=== PATIENT | female | born 1980 | race Caucasian/White ===

== ENCOUNTER 2020-09-20 13:18 | Emergency (ER) | payer MEDICAID ==
[~2020-09-20] VITALS: Ht 157.5 cm; Wt 72.6 kg
--- NOTE | 2020-09-20 13:18 | NUR ---
PT BIB SENT FROM CLINIC FOR LOW H&H. PT IS AAOX4, NOT IN RESPIRATORY DISTRRESS, V/S STABLE, KEPT RESTED AND COMFORTABLE. WILL CONTINUE TO MONITOR.
--- NOTE | 2020-09-20 13:34 | NUR ---
SEEN AND EXAMINED BY .
--- NOTE | 2020-09-20 14:02 | NUR ---
ER PHLEB AT BEDSIDE FOR BLOOD DRAW.
[2020-09-20 14:35] LABS: CREATININE 0.9 mg/dL (0.6-1.3); POTASSIUM 3.9 mmol/L (3.5-5.1)
[2020-09-20 14:38] LABS: BASOPHILS % (AUTO) 0.2 % (0.0-2.0); EOSINOPHILS % (AUTO) 1.6 % (0.0-6.0); HEMATOCRIT 26 % (33-45); HEMOGLOBIN 7.8 g/dL (11.5-14.8); LYMPHOCYTES # (AUTO) 1.5 /CMM (0.8-4.8); MEAN CORPUSCULAR HGB CONC 30 g/dl (31.0-36.0); MEAN CORPUSCULAR VOLUME 68 fL (82-100); MONOCYTES # (AUTO) 0.6 /CMM (0.1-1.30); MONOCYTES % (AUTO) 10.6 % (2.0-12.0); NEUTROPHILS # (AUTO) 3.9 /CMM (1.8-8.9); NEUTROPHILS % (AUTO) 63.6 % (43.0-81.0); PLATELET COUNT (AUTO) 288 /CMM (150-450); RED BLOOD CELL COUNT(AUTO) 3.86 MIL/uL (4.0-5.2); WHITE BLOOD COUNT (AUTO) 6.1 K/uL (4.3-11.0)
[2020-09-20 14:44] LABS: ALBUMIN 3.6 g/dL (3.4-5.0); BILIRUBIN,TOTAL 0.8 mg/dL (0.2-1.0); TOTAL PROTEIN, SERUM 7.5 g/dL (6.4-8.2)
[2020-09-20 16:26] LABS: LYMPHOCYTES % (MANUAL) 30 % (16-48); MONOCYTES % (MANUAL) 4 % (0-11.0); NEUTROPHILS % (MANUAL) 66 (42-76)
--- NOTE | 2020-09-20 17:15 | NUR ---
IV LINE ESTABLISHED G1Shanta R AC.
--- NOTE | 2020-09-20 19:11 | NUR ---
IV removed. Catheter intact and site benign. Pressure and 4x4 applied to site. No bleeding noted. Patient discharged to home in stable condition. Written and verbal after care instructions given. Patient verbalizes understanding of instruction.
[2020-09-20 19:23] VITALS: BP 121/73
== END 2020-09-20 19:23 | disposition home or self-care (01) ==
LOC: ER 13:20
DX: D64.9 Anemia, unspecified (principal); E11.65 Type 2 diabetes mellitus with hyperglycemia; N92.0 Excessive and frequent menstruation with regular cycle
CPT/HCPCS: 36415; 36430; 80053; 82962; 84484; 84702; 85007; 85025; 86850; 86923; 93005; 99285; J7050; P9016

== ENCOUNTER 2021-05-18 07:56 | Emergency (ER) | payer MEDICAID ==
[~2021-05-18] VITALS: Ht 149.9 cm; Wt 61.7 kg
--- NOTE | 2021-05-18 07:56 | NUR ---
PT BIB C/O HEADACHE AND DIZZINESS X 3 DAYS. PT. IS AAOX4, NOT IN RESPIRATORY DISTRESS, HOOKED TO MANAGER PROPOSAL, KEPT RESTED AND COMFORTABLE. WILL CONTINUE TO MONITOR.
--- NOTE | 2021-05-18 08:14 | NUR ---
AT BEDSIDE FOR EVAL.
[2021-05-18] MEDS ORDERED: METOCLOPRAMIDE HCL 10 MG TABLET ONE (08:22)
[2021-05-18] MEDS ORDERED: ACETAMINOPHEN ES 500 MG TABLET ONE (08:22)
[2021-05-18] MEDS ORDERED: KETOROLAC TROMETHAMINE 15 MG/ML VIAL ONE (08:29)
[2021-05-18] MEDS ORDERED: KETOROLAC TROMETHAMINE INJ 30 MG/ML VIAL IM ONE (08:30)
[2021-05-18] MEDS ORDERED: METOCLOPRAMIDE HCL 10 MG TABLET PO ONE (08:30)
[2021-05-18] MEDS ORDERED: ACETAMINOPHEN ES 500 MG TABLET PO ONE (08:30)
--- NOTE | 2021-05-18 08:30 | NUR ---
URINE SPECIMEN COLLECTED AND SENT TO LAB.
--- NOTE | 2021-05-18 09:11 | NUR ---
PT IS WHEELED TO CT SCAN VIA [facility].
[2021-05-18 09:13] LABS: CALCIUM, SERUM 9.1 mg/dL (8.5-10.1); CREATININE 0.6 mg/dL (0.6-1.3); POTASSIUM 4.5 mmol/L (3.5-5.1)
[2021-05-18 09:14] LABS: BASOPHILS % (AUTO) 0.4 % (0.0-2.0); EOSINOPHILS % (AUTO) 3.3 % (0.0-6.0); HEMATOCRIT 34 % (33-45); HEMOGLOBIN 10.8 g/dL (11.5-14.8); LYMPHOCYTES # (AUTO) 1.1 K/uL (0.8-4.8); LYMPHOCYTES % (AUTO) 22.2 % (20.0-44.0); MEAN CORPUSCULAR HGB CONC 32 g/dl (31.0-36.0); MEAN CORPUSCULAR VOLUME 89 fL (82-100); MONOCYTES # (AUTO) 0.2 K/uL (0.1-1.30); MONOCYTES % (AUTO) 4.9 % (2.0-12.0); NEUTROPHILS # (AUTO) 3.5 K/uL (1.8-8.9); NEUTROPHILS % (AUTO) 69.2 % (43.0-81.0); PLATELET COUNT (AUTO) 263 K/uL (150-450); RED BLOOD CELL COUNT(AUTO) 3.81 MIL/uL (4.0-5.2); WHITE BLOOD COUNT (AUTO) 5.1 K/uL (4.3-11.0)
[2021-05-18] MEDS ORDERED: SUMATRIPTAN SUCCINATE 6 MG/0.5 ML VIAL SQ ONE ×2 (10:00→10:05)
--- NOTE | 2021-05-18 10:33 | NUR ---
Patient discharged to home in stable condition. Written and verbal after care instructions given. Patient verbalizes understanding of instruction.
[2021-05-18 10:34] VITALS: BP 119/73
== END 2021-05-18 10:35 | disposition home or self-care (01) ==
LOC: ER 08:01
DX: R51.9 Headache, unspecified (principal); E11.9 Type 2 diabetes mellitus without complications; D64.9 Anemia, unspecified; E78.00 Pure hypercholesterolemia, unspecified
CPT/HCPCS: 36415; 70450; 80048; 84703; 85025; 96372 ×2; 99284; J1885; J3030; J8597

== ENCOUNTER 2021-10-07 22:06 | Emergency (ER) | payer BC, MEDICAID ==
[~2021-10-07] VITALS: Ht 154.9 cm; Wt 62.6 kg
--- NOTE | 2021-10-07 23:20 | NUR ---
RUTH C/O HEADACHE AND MID EPIGASTRIC PAIN X1DAY. +N/V. PATIENT ALERT AND ORIENTED X3. AMBULATORY WITH NON LABORED BREATHING IN BED 10 AWAITING MD FRYE.
[2021-10-08] MEDS ORDERED: ONDANSETRON HCL/PF 4 MG/2 ML VIAL IVP ONE
[2021-10-08] MEDS ORDERED: IV NS 0.9% 1,000 ML BAG IV ONE
[2021-10-08] MEDS ORDERED: MAG HYDROX/AL HYDROX/SIMETH 30 ML UDC PO ONE
[2021-10-08] MEDS ORDERED: METOCLOPRAMIDE HCL 10 MG/2 ML VIAL IV ONE
[2021-10-08] MEDS ORDERED: MAG HYDROX/AL HYDROX/SIMETH 30 ML UDC ONE (00:05)
[2021-10-08] MEDS ORDERED: ONDANSETRON HCL/PF 4 MG/2 ML VIAL ONE ×2 (00:05→02:09)
[2021-10-08] MEDS ORDERED: METOCLOPRAMIDE HCL 10 MG/2 ML VIAL ONE (00:05)
[2021-10-08] MEDS ORDERED: FAMOTIDINE/PF INJ 20 MG/2 ML VIAL IV ONE ×2 (00:06)
[2021-10-08 00:13] LABS: BASOPHILS % (AUTO) 0.2 % (0.0-2.0); EOSINOPHILS % (AUTO) 1.7 % (0.0-6.0); HEMATOCRIT 26 % (33-45); HEMOGLOBIN 7.7 g/dL (11.5-14.8); LYMPHOCYTES # (AUTO) 1.2 K/uL (0.8-4.8); MEAN CORPUSCULAR HGB CONC 30 g/dl (31.0-36.0); MEAN CORPUSCULAR VOLUME 69 fL (82-100); MONOCYTES # (AUTO) 0.2 K/uL (0.1-1.30); MONOCYTES % (AUTO) 4.6 % (2.0-12.0); NEUTROPHILS # (AUTO) 3.7 K/uL (1.8-8.9); NEUTROPHILS % (AUTO) 70.5 % (43.0-81.0); PLATELET COUNT (AUTO) 274 K/uL (150-450); RED BLOOD CELL COUNT(AUTO) 3.77 MIL/uL (4.0-5.2); WHITE BLOOD COUNT (AUTO) 5.3 K/uL (4.3-11.0)
--- NOTE | 2021-10-08 00:15 | NUR ---
URINE COLLECTED AND SENT TO LAB
--- NOTE | 2021-10-08 00:15 | NUR ---
BLOOD COLLECTED AND SENT TO LAB
[2021-10-08 00:44] LABS: ALBUMIN 3.6 g/dL (3.4-5.0); BILIRUBIN,DIRECT 0.1 mg/dL (0.0-0.2); BILIRUBIN,TOTAL 0.7 mg/dL (0.2-1.0); CALCIUM, SERUM 8.6 mg/dL (8.5-10.1); CREATININE 0.6 mg/dL (0.6-1.3); POTASSIUM 4.2 mmol/L (3.5-5.1); TOTAL PROTEIN, SERUM 7.4 g/dL (6.4-8.2)
[2021-10-08 00:54] LABS: BILIRUBIN,URINE NEGATIVE (NEGATIVE); COLOR,URINE YELLOW (YELLOW); LEUKOCYTE ESTERASE ,URINE TRACE (NEGATIVE); NITRITE, URINE NEGATIVE (NEGATIVE); PROTEIN,URINE 30 mg/dl (NEGATIVE); UGLUCOSE 250 MG/DL mg/dL (NEGATIVE); UROBILINOGEN,URINE 0.2 EU/dL (0.2)
[2021-10-08 01:06] LABS: RBC,URINE TOO NUMEROUS TO COUN /HPF (0-2)
[2021-10-08 01:08] LABS: BACTERIA,URINE Moderate /HPF (None Seen); SQUAMOUS EPITHELIAL CELL,UR Moderate /HPF (None Seen)
[2021-10-08] MEDS ORDERED: diphenhydrAMINE HCL 50 MG/ML VIAL IV ONE (01:30)
[2021-10-08] MEDS ORDERED: ACETAMINOPHEN 325 MG TABLET PO ONE (01:30)
[2021-10-08] MEDS ORDERED: ONDANSETRON HCL/PF 4 MG/2 ML VIAL IV ONE (01:30)
[2021-10-08] MEDS ORDERED: diphenhydrAMINE HCL 50 MG/ML VIAL ONE (02:09)
[2021-10-08] MEDS ORDERED: ACETAMINOPHEN 325 MG TABLET ONE (02:09)
[2021-10-08 02:21] VITALS: BP 119/70
[2021-10-08] MEDS ORDERED: MAG355OR21 PO (03:13)
[2021-10-08] MEDS ORDERED: ONDA4TAB5 PO (03:13)
[2021-10-08] MEDS ORDERED: METO-295 PO (03:13)
[2021-10-08] MEDS ORDERED: FAMO20TA8 PO (03:13)
--- NOTE | 2021-10-08 03:25 | NUR ---
Patient discharged to home in stable condition. Written and verbal after care instructions given. Patient verbalizes understanding of instruction.
== END 2021-10-08 03:30 | disposition home or self-care (01) ==
LOC: ER 22:17
DX: R10.13 Epigastric pain (principal); N92.0 Excessive and frequent menstruation with regular cycle; K21.9 Gastro-esophageal reflux disease without esophagitis; D50.0 Iron deficiency anemia secondary to blood loss (chronic); E11.9 Type 2 diabetes mellitus without complications; E78.00 Pure hypercholesterolemia, unspecified; Z86.2 Personal history of diseases of the blood and blood-forming organs and certain disorders involving the immune mechanism; Z79.899 Other long term (current) drug therapy
CPT/HCPCS: 36415; 80048; 80076; 81001; 83690; 84703; 85025; 87086; 96361; 96374; 96375; 99284; J1200; J2405 ×2; J2765; J3490; J7030

== ENCOUNTER 2021-10-08 22:38 | Emergency (ER) | payer BC ==
[~2021-10-08] VITALS: Ht 154.9 cm; Wt 62.6 kg
[~2021-10-08 22:38] MED LIST: FAMO20TA8 PO; MAG355OR21 PO; METO-295 PO; ONDA4TAB5 PO
--- NOTE | 2021-10-08 22:47 | NUR ---
PT BIBHUSBAND FROM HOME C/O HEADACHE SINCE YESTERDAY. PT D/C FROM [facility] ER YESTERDAY AND TOOK PRESCRIBED MEDS WITH NO RELIEF. PT A/OX4. TOLERATING R/A WELL WITH NO SOB. CONNECTED PT TO POX AND MONITOR.
[2021-10-08] MEDS ORDERED: KETOROLAC TROMETHAMINE 15 MG/ML VIAL ONE (22:58)
[2021-10-08] MEDS ORDERED: diphenhydrAMINE HCL 50 MG/ML VIAL ONE (22:58)
[2021-10-08] MEDS ORDERED: METOCLOPRAMIDE HCL 10 MG/2 ML VIAL ONE (22:58)
[2021-10-08] MEDS ORDERED: diphenhydrAMINE HCL 50 MG/ML VIAL IV ONE (23:00)
[2021-10-08] MEDS ORDERED: IV NS 0.9% 1,000 ML BAG IV ONE (23:00)
[2021-10-08] MEDS ORDERED: KETOROLAC TROMETHAMINE INJ 30 MG/ML VIAL IV ONE (23:00)
[2021-10-08] MEDS ORDERED: METOCLOPRAMIDE HCL 10 MG/2 ML VIAL IV ONE (23:00)
--- NOTE | 2021-10-09 00:07 | NUR ---
Patient discharged to home in stable condition. Written and verbal after care instructions given. Patient verbalizes understanding of instruction. PT ambulatory with a steady gait. IV removed. Catheter intact and site benign. Pressure and 4x4 applied to site. No bleeding noted.
[2021-10-09 00:10] VITALS: BP 119/88
== END 2021-10-09 00:10 | disposition home or self-care (01) ==
LOC: ER 22:46
DX: R51.9 Headache, unspecified (principal); E11.9 Type 2 diabetes mellitus without complications; E78.00 Pure hypercholesterolemia, unspecified; Z86.2 Personal history of diseases of the blood and blood-forming organs and certain disorders involving the immune mechanism; Z79.899 Other long term (current) drug therapy
CPT/HCPCS: 96361; 96374; 96375; 99284; J1200; J1885; J2765; J7030

== ENCOUNTER 2021-11-03 11:48 | Emergency (ER) | payer BC ==
[~2021-11-03] VITALS: Ht 160 cm; Wt 63.5 kg
--- NOTE | 2021-11-03 12:03 | NUR ---
The patient bib family member for "started having frequency/urgency/pressure on bladder wk ago NOT going away. Will continue to monitor the patient.
--- NOTE | 2021-11-03 12:05 | NUR ---
URINE COLLECTED AND SENT TO THE LAB
--- NOTE | 2021-11-03 12:06 | NUR ---
DR WILL AT THE BEDSIDE
[2021-11-03 12:44] LABS: BILIRUBIN,URINE NEGATIVE (NEGATIVE); COLOR,URINE YELLOW (YELLOW); LEUKOCYTE ESTERASE ,URINE TRACE (NEGATIVE); NITRITE, URINE NEGATIVE (NEGATIVE); PH,URINE 5.5 (5.0-8.0); PROTEIN,URINE NEGATIVE (NEGATIVE); UGLUCOSE >=1000 mg/dL (NEGATIVE); UROBILINOGEN,URINE 0.2 EU/dL (0.2)
[2021-11-03 12:49] LABS: RBC,URINE TOO NUMEROUS TO COUN /HPF (0-2)
[2021-11-03 12:50] LABS: BACTERIA,URINE MODERATE /HPF (None Seen); SQUAMOUS EPITHELIAL CELL,UR RARE /HPF (None Seen); YEAST,URINE None Seen /HPF (None Seen)
[2021-11-03 12:51] LABS: CALCIUM CARBONATE CRYSTALS,UR None Seen /HPF (None Seen); CALCIUM OXALATE CRYSTALS,UR None Seen /HPF (None Seen); CALCIUM PHOSPHATE CRYSTALS,UR None Seen /HPF (None Seen); COARSE GRANULAR CASTS,URINE None Seen /LPF (None Seen); CYSTINE CRYSTALS,URINE None Seen /HPF (None Seen); FATTY CASTS,URINE None Seen /LPF (None Seen); FINE GRANULAR CASTS,URINE None Seen /LPF (None Seen); HYALINE CASTS, URINE None Seen /LPF (None Seen); MUCUS,URINE None Seen /LPF (None Seen); OTHER CRYSTALS,URINE None Seen /HPF (None Seen); RED BLOOD CELL CASTS,URINE None Seen /LPF (None Seen); SPERM,URINE None Seen /HPF (None Seen); TRICHOMONAS,URINE None Seen /HPF (None Seen); TRIPLE PHOSPHATE CRYSTAL,UR None Seen /HPF (None Seen); TYROSINE CRYSTAL,URINE None seen /HPF (None Seen); URIC ACID CRYSTALS,URINE None Seen /HPF (None Seen); URINE AMORPHOUS PHOSPHATES None Seen /HPF (None Seen); URINE AMORPHOUS URATE None Seen /HPF (None Seen); WAXY CASTS,URINE None Seen /LPF (None Seen)
[2021-11-03] MEDS ORDERED: CEPHALEXIN MONOHYDRATE 500 MG CAPSULE PO ONE (13:04)
[2021-11-03] MEDS ORDERED: PHENAZOPYRIDINE HCL 200 MG TABLET ONE (13:04)
[2021-11-03] MEDS: PHENAZOPYRIDINE HCL 200 MG TABLET PO ONE (13:08)
[2021-11-03] MEDS: CEPHALEXIN MONOHYDRATE 500 MG CAPSULE PO ONE (13:08)
[2021-11-03] MEDS ORDERED: CEPH500C2 PO (13:25)
[2021-11-03] MEDS ORDERED: PHEN-704 PO (13:25)
[2021-11-03 13:43] VITALS: BP 121/67
--- NOTE | 2021-11-03 13:43 | NUR ---
Patient discharged to home in stable condition. Written and verbal after care instructions given. Patient verbalizes understanding of instruction.
== END 2021-11-03 13:44 | disposition home or self-care (01) ==
LOC: ER 11:50
DX: N30.00 Acute cystitis without hematuria (principal); E11.9 Type 2 diabetes mellitus without complications; E78.00 Pure hypercholesterolemia, unspecified; Z86.2 Personal history of diseases of the blood and blood-forming organs and certain disorders involving the immune mechanism; Z79.899 Other long term (current) drug therapy
CPT/HCPCS: 81001

== ENCOUNTER 2021-11-11 13:43 | Emergency (ER) | payer BC ==
[~2021-11-11] VITALS: Ht 160 cm; Wt 63.5 kg
[~2021-11-11 13:43] MED LIST changes: +CEPH500C2 PO; +PHEN-704 PO
--- NOTE | 2021-11-11 13:50 | NUR ---
BIB C/O EPIGASTRIC PAIN/MID CHEST PAIN FOR FEW DAYS, WORST TODAY 10/10 PS. ALSO C/O DIZZINESS AND NAUSEA. TO ER BED 7, HOOKED TO MONITOR, VSS. CHANGED TO HOSP GOWN, WARM BLANKET PROVIDED. PATIENT AAO x 4. BREATHING EVEN AND UNLABORED. AWAITING MD FRYE
--- NOTE | 2021-11-11 13:51 | NUR ---
DR ROBBINS AT BEDSIDE
[2021-11-11] MEDS ORDERED: ONDANSETRON HCL/PF 4 MG/2 ML VIAL IVP ONE (14:00)
[2021-11-11] MEDS ORDERED: IV NS 0.9% 1,000 ML BAG IV ONE (14:00)
[2021-11-11] MEDS ORDERED: ONDANSETRON HCL/PF 4 MG/2 ML VIAL ONE (14:07)
--- NOTE | 2021-11-11 14:10 | NUR ---
DR ROSAS AT BEDSIDE
[2021-11-11 14:23] LABS: BASOPHILS % (AUTO) 0.5 % (0.0-2.0); EOSINOPHILS % (AUTO) 0.4 % (0.0-6.0); HEMATOCRIT 26 % (33-45); HEMOGLOBIN 7.7 g/dL (11.5-14.8); LYMPHOCYTES # (AUTO) 1.2 K/uL (0.8-4.8); LYMPHOCYTES % (AUTO) 18.6 % (20.0-44.0); MEAN CORPUSCULAR HGB CONC 29 g/dl (31.0-36.0); MEAN CORPUSCULAR VOLUME 65 fL (82-100); MONOCYTES # (AUTO) 0.4 K/uL (0.1-1.30); MONOCYTES % (AUTO) 5.5 % (2.0-12.0); NEUTROPHILS # (AUTO) 4.8 K/uL (1.8-8.9); PLATELET COUNT (AUTO) 304 K/uL (150-450); RED BLOOD CELL COUNT(AUTO) 4.08 MIL/uL (4.0-5.2); WHITE BLOOD COUNT (AUTO) 6.4 K/uL (4.3-11.0)
[2021-11-11] MEDS ORDERED: LIDOCAINE VISCOUS 2% UD 15 ML UDC ONE (14:25)
[2021-11-11] MEDS ORDERED: MECLIZINE HCL 25 MG TABLET ONE (14:25)
[2021-11-11] MEDS ORDERED: MAG HYDROX/AL HYDROX/SIMETH 30 ML UDC ONE (14:25)
[2021-11-11] MEDS ORDERED: LIDOCAINE VISCOUS 2% UD 15 ML UDC MM ONE (14:30)
[2021-11-11] MEDS ORDERED: MAG HYDROX/AL HYDROX/SIMETH 30 ML UDC PO ONE (14:30)
[2021-11-11] MEDS ORDERED: MECLIZINE HCL 12.5 MG TABLET PO ONE (14:30)
[2021-11-11 14:54] LABS: ALANINE AMINOTRANSFERASE 13 U/L (12-78); ALBUMIN 4.1 g/dL (3.4-5.0); ALKALINE PHOSPHATASE 77 U/L (46-116); ASPARTATE AMINOTRANSFERASE 17 U/L (15-37); BILIRUBIN,DIRECT 0.2 mg/dL (0.0-0.2); BILIRUBIN,TOTAL 1.2 mg/dL (0.2-1.0); CALCIUM, SERUM 9.2 mg/dL (8.5-10.1); CARBON DIOXIDE 28 mmol/L (21-32); CHLORIDE 104 mmol/L (98-107); CREATININE 0.7 mg/dL (0.6-1.3); GLUCOSE 175 mg/dL (74-106); LIPASE 67 U/L (73-393); POTASSIUM 4.1 mmol/L (3.5-5.1); SODIUM SERUM 139 mmol/L (136-145); TOTAL PROTEIN, SERUM 8.1 g/dL (6.4-8.2); UREA NITROGEN, BLOOD 11 mg/dL (7-18)
[2021-11-11] MEDS ORDERED: MECL-159 PO (16:19)
[2021-11-11] MEDS ORDERED: ONDA4TAB11 PO (16:19)
[2021-11-11] MEDS ORDERED: MAG-55 PO (16:19)
[2021-11-11 16:28] LABS: EOSINOPHILS % (MANUAL) 1 % (0-4); LYMPHOCYTES % (MANUAL) 27 % (16-48); MONOCYTES % (MANUAL) 3 % (0-11.0); NEUTROPHILS % (MANUAL) 69 (42-76)
--- NOTE | 2021-11-11 16:42 | NUR ---
IV removed. Catheter intact and site benign. Pressure and 4x4 applied to site. No bleeding noted.Patient discharged to home in stable condition. Written and verbal after care instructions given. Patient and verbalizes understanding of instruction.
[2021-11-11 16:43] VITALS: BP 124/70
== END 2021-11-11 16:44 | disposition home or self-care (01) ==
LOC: ER 13:45
DX: R10.13 Epigastric pain (principal); R42 Dizziness and giddiness; R11.0 Nausea; E78.00 Pure hypercholesterolemia, unspecified; Z79.899 Other long term (current) drug therapy
CPT/HCPCS: 36415; 80048; 80076; 83690; 84484; 85007; 85025; 85730; 93005; 96361; 96374; 99284; J2405; J7030; J8597

== ENCOUNTER 2022-03-13 10:10 | Emergency (ER) | payer BC ==
[~2022-03-13] VITALS: Ht 152.4 cm; Wt 52.2 kg
[~2022-03-13 10:10] MED LIST changes: +MAG-55 PO; +MECL-159 PO; +ONDA4TAB11 PO
--- NOTE | 2022-03-13 10:58 | NUR ---
COVID TEST COLLECTED AND SENT
--- NOTE | 2022-03-13 11:00 | NUR ---
BIB FAMILY C/O HEADACHE, CHILL, AND ABDOMINAL PAIN 02/15, PT RECENTLY FLEW BACK FROM [facility] AFTER HAVING A HYSTRECTOMY 3 WEEKS AGO. AMBULATORY, PLACED ON BED, AAOX4, BREATHING EVEN AND UNLABORED SATURATING AT 98%RA
[2022-03-13 11:18] LABS: BASOPHILS % (AUTO) 0.2 % (0.0-2.0); EOSINOPHILS % (AUTO) 0.2 % (0.0-6.0); HEMATOCRIT 32 % (33-45); HEMOGLOBIN 10.2 g/dL (11.5-14.8); LYMPHOCYTES % (AUTO) 10.1 % (20.0-44.0); MEAN CORPUSCULAR HGB CONC 33 g/dl (31.0-36.0); MEAN CORPUSCULAR VOLUME 89 fL (82-100); MONOCYTES # (AUTO) 0.9 K/uL (0.1-1.30); NEUTROPHILS % (AUTO) 80.5 % (43.0-81.0); PLATELET COUNT (AUTO) 368 K/uL (150-450); RED BLOOD CELL COUNT(AUTO) 3.54 MIL/uL (4.0-5.2); WHITE BLOOD COUNT (AUTO) 9.9 K/uL (4.3-11.0)
[2022-03-13] MEDS ORDERED: ONDANSETRON HCL/PF 4 MG/2 ML VIAL ONE (11:18)
[2022-03-13] MEDS ORDERED: MORPHINE SULFATE INJ 2 MG/ML DISP.SYRIN ONE (11:19)
[2022-03-13] MEDS: IV NS 0.9% 1,000 ML IV ONE (11:30)
[2022-03-13] MEDS: MORPHINE SULFATE INJ 2 MG/ML DISP.SYRIN IV ONE (11:33)
[2022-03-13] MEDS: ONDANSETRON HCL/PF - ER 4 MG/2 ML VIAL IV ONE (11:34)
[2022-03-13 11:37] LABS: ALBUMIN 2.8 g/dL (3.4-5.0); BILIRUBIN,DIRECT 0.3 mg/dL (0.0-0.2); BILIRUBIN,TOTAL 1.1 mg/dL (0.2-1.0); CALCIUM, SERUM 9.9 mg/dL (8.5-10.1); CREATININE 0.8 mg/dL (0.6-1.3); POTASSIUM 3.6 mmol/L (3.5-5.1); TOTAL PROTEIN, SERUM 7.5 g/dL (6.4-8.2)
--- NOTE | 2022-03-13 12:00 | NUR ---
PATIENT TAKEN TO CT VIA [facility]
[2022-03-13 12:40] LABS: BILIRUBIN,URINE NEGATIVE (NEGATIVE); COLOR,URINE YELLOW (YELLOW); LEUKOCYTE ESTERASE ,URINE NEGATIVE (NEGATIVE); NITRITE, URINE NEGATIVE (NEGATIVE); PROTEIN,URINE NEGATIVE (NEGATIVE); UGLUCOSE >=1000 mg/dL (NEGATIVE); UROBILINOGEN,URINE 0.2 EU/dL (0.2)
[2022-03-13 12:51] LABS: RBC,URINE 0-2 /HPF (0-2); SQUAMOUS EPITHELIAL CELL,UR Few /HPF (None Seen); YEAST,URINE Few /HPF (None Seen)
[2022-03-13 12:52] LABS: BACTERIA,URINE Moderate /HPF (None Seen)
[2022-03-13] MEDS ORDERED: DOMPERIDONE PO (14:07)
[2022-03-13] MEDS ORDERED: GLIP5TAB13 PO (14:07)
[2022-03-13] MEDS ORDERED: METF-837 PO (14:07)
[2022-03-13] MEDS ORDERED: PANTOPRAZOLE PO (14:07)
[2022-03-13] MEDS ORDERED: METHYLCOBALAMIN PO (14:08)
[2022-03-13] MEDS ORDERED: EMPA25TA PO (14:08)
[2022-03-13] MEDS ORDERED: [UNRECOGNIZED DRUG - OTHER] PO (14:08)
[2022-03-13] MEDS ORDERED: IBUP-51 PO (14:08)
[2022-03-13] MEDS ORDERED: ONDA4TAB5 PO (15:31)
[2022-03-13] MEDS ORDERED: CEPH500C2 PO (15:31)
[2022-03-13] MEDS ORDERED: HYDR-4303 PO (15:31)
--- NOTE | 2022-03-13 15:58 | NUR ---
IV removed. Catheter intact and site benign. Pressure and 4x4 applied to site. No bleeding noted.Patient discharged to home in stable condition. Written and verbal after care instructions given. Patient and relative verbalizes understanding of instruction.
[2022-03-13 15:59] VITALS: BP 110/75
== END 2022-03-13 15:50 | disposition home or self-care (01) ==
LOC: ER 10:13
DX: N99.843 Postprocedural seroma of a genitourinary system organ or structure following other procedure (principal); G89.18 Other acute postprocedural pain; R10.30 Lower abdominal pain, unspecified; E78.5 Hyperlipidemia, unspecified; Z90.710 Acquired absence of both cervix and uterus; K21.9 Gastro-esophageal reflux disease without esophagitis; E11.9 Type 2 diabetes mellitus without complications; Z79.84 Long term (current) use of oral hypoglycemic drugs; Z20.822 Contact with and (suspected) exposure to COVID-19
CPT/HCPCS: 99284; 74176; 96374; 96361; 96375; 87426; 85025; 80048; 87086; 83690; 80076; 84703; 81001; 36415; 84702; J2405 ×2; J7030; J2270; C9803

== ENCOUNTER 2022-03-14 22:07 | Emergency (ER) | payer BC ==
[~2022-03-14] VITALS: Ht 152.4 cm; Wt 52.2 kg
[~2022-03-14 22:07] MED LIST changes: +DOMPERIDONE PO; +EMPA25TA PO; -FAMO20TA8 PO; +GLIP5TAB13 PO; +HYDR-4303 PO; +IBUP-51 PO; -MAG-55 PO; -MAG355OR21 PO; -MECL-159 PO; +METF-837 PO; +METHYLCOBALAMIN PO; -METO-295 PO; -ONDA4TAB11 PO; +PANTOPRAZOLE PO; -PHEN-704 PO; +[UNRECOGNIZED DRUG - OTHER] PO
--- NOTE | 2022-03-14 23:40 | NUR ---
RUTH C/O PAIN AND DRAINAGE AT SURGICAL SITE. PATIENT UNDERGONE HYSTERECTOMY AT [facility] 02/23/22. DRAINAGE STARTED TO COME OUT SINCE SUNDAY. WAS SEEN IN ER YESTERDAY FOR SAME PROBLEM. PLACED COMFORTABLY IN BED. VITALS CHECKED. PT IS AFEBRILE.
[2022-03-15 00:09] LABS: BASOPHILS % (AUTO) 0.2 % (0.0-2.0); HEMATOCRIT 33 % (33-45); HEMOGLOBIN 10.6 g/dL (11.5-14.8); LYMPHOCYTES % (AUTO) 15.9 % (20.0-44.0); MEAN CORPUSCULAR HGB CONC 32 g/dl (31.0-36.0); MEAN CORPUSCULAR VOLUME 89 fL (82-100); MONOCYTES # (AUTO) 0.8 K/uL (0.1-1.30); MONOCYTES % (AUTO) 11.6 % (2.0-12.0); NEUTROPHILS # (AUTO) 4.7 K/uL (1.8-8.9); NEUTROPHILS % (AUTO) 71.3 % (43.0-81.0); PLATELET COUNT (AUTO) 412 K/uL (150-450); RED BLOOD CELL COUNT(AUTO) 3.69 MIL/uL (4.0-5.2); WHITE BLOOD COUNT (AUTO) 6.5 K/uL (4.3-11.0)
--- NOTE | 2022-03-15 00:10 | NUR ---
IV CANNULA G18 INSERTED ON RIGHT AC.
[2022-03-15 00:27] LABS: CALCIUM, SERUM 9.7 mg/dL (8.5-10.1); CREATININE 0.7 mg/dL (0.6-1.3); POTASSIUM 4.7 mmol/L (3.5-5.1)
[2022-03-15] MEDS ORDERED: IV NS 0.9% 250 ML IV ONE (00:50)
--- NOTE | 2022-03-15 01:03 | NUR ---
WHEELED PATIENT TO CT DEPT
--- NOTE | 2022-03-15 01:49 | NUR ---
PER LOSS PREVENTION AND SAFETY MANAGER, TO WITH HOLD THE METFORMIN MEDICINE OF PATIENT FOR 48HRS D/T PATIENT RECIEVED CONTRAST DURING CT SCAN.
--- NOTE | 2022-03-15 03:12 | NUR ---
IV CANNULA REMOVED
--- NOTE | 2022-03-15 03:14 | NUR ---
Patient discharged to home in stable condition. Written and verbal after care instructions given. Patient verbalizes understanding of instruction.
[2022-03-15 03:15] VITALS: BP 112/61
== END 2022-03-15 03:15 | disposition home or self-care (01) ==
LOC: ER 22:13
DX: L76.34 Postprocedural seroma of skin and subcutaneous tissue following other procedure (principal); E78.5 Hyperlipidemia, unspecified; K21.9 Gastro-esophageal reflux disease without esophagitis; E11.9 Type 2 diabetes mellitus without complications; Z79.899 Other long term (current) drug therapy
CPT/HCPCS: 99285; 74177; 85025; 80048; 36415; 85730; J7050; A6403

== ENCOUNTER 2022-11-06 19:17 | Emergency (ER) | payer BC ==
[~2022-11-06] VITALS: Ht 157.5 cm; Wt 58.1 kg
--- NOTE | 2022-11-06 19:43 | NUR ---
BIBFAMILY FROM HOME C/O UPPER ABD X2 DAYS, +N/V. TOOK ZOFRAN WITH NO RELIEF. Pt placed comfortably in bed. Vitals checked.
--- NOTE | 2022-11-06 19:48 | NUR ---
URINE COLLECTED AND SENT TO LAB
--- NOTE | 2022-11-06 20:14 | NUR ---
CERTIFIED CONTROL SYSTEMS TECHNICIAN AT PT'S BEDSIDE
--- NOTE | 2022-11-06 20:16 | NUR ---
Miky carroll in EDM - 11/06/22 at 2019 by RUBÉN Iv to left AC 20g started without deficulties and good blood return.
[2022-11-06 20:25] LABS: BASOPHILS % (AUTO) 0.3 % (0.0-2.0); EOSINOPHILS % (AUTO) 3.4 % (0.0-6.0); HEMATOCRIT 43 % (33-45); HEMOGLOBIN 14.1 g/dL (11.5-14.8); LYMPHOCYTES # (AUTO) 2.1 K/uL (0.8-4.8); LYMPHOCYTES % (AUTO) 38.9 % (20.0-44.0); MEAN CORPUSCULAR HGB CONC 33 g/dl (31.0-36.0); MEAN CORPUSCULAR VOLUME 93 fL (82-100); MONOCYTES # (AUTO) 0.3 K/uL (0.1-1.30); MONOCYTES % (AUTO) 6.3 % (2.0-12.0); NEUTROPHILS # (AUTO) 2.8 K/uL (1.8-8.9); NEUTROPHILS % (AUTO) 51.1 % (43.0-81.0); PLATELET COUNT (AUTO) 257 K/uL (150-450); RED BLOOD CELL COUNT(AUTO) 4.64 MIL/uL (4.0-5.2); WHITE BLOOD COUNT (AUTO) 5.4 K/uL (4.3-11.0)
--- NOTE | 2022-11-06 20:32 | NUR ---
US TECH AT PT'S BEDSIDE
[2022-11-06 20:36] LABS: CALCIUM, SERUM 9.6 mg/dL (8.5-10.1); CREATININE 0.7 mg/dL (0.6-1.3); POTASSIUM 3.9 mmol/L (3.5-5.1)
[2022-11-06 20:43] LABS: BILIRUBIN,URINE NEGATIVE (NEGATIVE); COLOR,URINE YELLOW (YELLOW); LEUKOCYTE ESTERASE ,URINE NEGATIVE (NEGATIVE); NITRITE, URINE NEGATIVE (NEGATIVE); PH,URINE 8.5 (5.0-8.0); PROTEIN,URINE NEGATIVE (NEGATIVE); UGLUCOSE 3+ mg/dL (NEGATIVE); UROBILINOGEN,URINE 0.2 EU/dL (0.2)
[2022-11-06 20:44] LABS: BILIRUBIN,DIRECT 0.2 mg/dL (0.0-0.2); BILIRUBIN,TOTAL 1.5 mg/dL (0.2-1.0); TOTAL PROTEIN, SERUM 7.8 g/dL (6.4-8.2)
--- NOTE | 2022-11-06 20:52 | NUR ---
PT TAKEN TO CT VIA [facility]
[2022-11-06 20:57] LABS: BACTERIA,URINE None seen /HPF (None Seen); RBC,URINE 0-2 /HPF (0-2); WBC,URINE 0-2 /HPF (0-3)
--- NOTE | 2022-11-06 21:00 | NUR ---
PT RETURNED TO ER BED [address]
--- NOTE | 2022-11-06 21:01 | NUR ---
BACK FROM CT
--- NOTE | 2022-11-06 21:26 | NUR ---
EKG DONE AT BEDSIDE
--- NOTE | 2022-11-06 21:43 | NUR ---
INTERNET WEBMASTER AT PT'S BEDSIDE
[2022-11-06] MEDS ORDERED: ACETAMINOPHEN ES 500 MG TABLET ONE (22:22)
[2022-11-06] MEDS ORDERED: ACETAMINOPHEN ES 500 MG TABLET PO ONE (22:30)
[2022-11-06] MEDS ORDERED: METO-295 PO (22:51)
[2022-11-06 23:05] VITALS: BP 111/61
== END 2022-11-06 23:08 | disposition home or self-care (01) ==
LOC: ER 19:21
DX: R14.2 Eructation (principal); R10.10 Upper abdominal pain, unspecified; R11.2 Nausea with vomiting, unspecified; E78.5 Hyperlipidemia, unspecified; E11.9 Type 2 diabetes mellitus without complications; K21.9 Gastro-esophageal reflux disease without esophagitis; D64.9 Anemia, unspecified; Z79.899 Other long term (current) drug therapy; Z79.84 Long term (current) use of oral hypoglycemic drugs
CPT/HCPCS: 36415; 76705-TC; 80048-TC; 80076-TC; 81001; 83690-TC; 84484-TC; 85025-TC; 87086-TC

== ENCOUNTER 2023-10-24 18:51 | Emergency (ER) | payer BC, OTHER ==
[~2023-10-24] VITALS: Ht 152.4 cm; Wt 69.9 kg
[~2023-10-24 18:51] MED LIST changes: +METO-295 PO
[2023-10-24 19:10] VITALS: TEMP 98.4
[2023-10-24] MEDS ORDERED: MORPHINE SULFATE INJ 4 MG/ML DISP.SYRIN ONE (19:25)
[2023-10-24] MEDS ORDERED: ONDANSETRON HCL/PF 4 MG/2 ML VIAL ONE (19:25)
[2023-10-24] MEDS: IV NS 0.9% 1,000 ML BAG IV ONE (19:35)
[2023-10-24] MEDS: ONDANSETRON HCL/PF 4 MG/2 ML VIAL IVP ONE (19:35)
[2023-10-24] MEDS: MORPHINE SULFATE INJ 2 MG/ML DISP.SYRIN IV ONE (19:37)
[2023-10-24 19:46] LABS: BASOPHILS # (AUTO) 0.1 K/uL (0.0-0.2); BASOPHILS % (AUTO) 0.6 % (0.0-2.0); EOSINOPHILS # (AUTO) 0.1 K/uL (0.0-0.7); EOSINOPHILS % (AUTO) 1.2 % (0.0-6.0); HEMATOCRIT 39 % (33-45); HEMOGLOBIN 13.1 g/dL (11.5-14.8); LYMPHOCYTES # (AUTO) 1.7 K/uL (0.8-4.8); LYMPHOCYTES % (AUTO) 17.7 % (20.0-44.0); MEAN CORPUSCULAR HEMOGLOBIN 30 PG (26.0-33.0); MEAN CORPUSCULAR HGB CONC 33 g/dl (31.0-36.0); MEAN CORPUSCULAR VOLUME 91 fL (82-100); MONOCYTES # (AUTO) 0.3 K/uL (0.1-1.30); MONOCYTES % (AUTO) 3.6 % (2.0-12.0); NEUTROPHILS # (AUTO) 7.2 K/uL (1.8-8.9); NEUTROPHILS % (AUTO) 76.9 % (43.0-81.0); PLATELET COUNT (AUTO) 235 K/uL (150-450); RED BLOOD CELL COUNT(AUTO) 4.34 MIL/uL (4.0-5.2); RED CELL DISTRIBUTION WIDTH 12.7 % (11.5-15.0); WHITE BLOOD COUNT (AUTO) 9.4 K/uL (4.3-11.0)
[2023-10-24 20:24] LABS: APPEARANCE,URINE Clear (CLEAR); BILIRUBIN,URINE Negative (NEGATIVE); BLOOD, URINE Negative Ery/uL (NEGATIVE); COLOR,URINE YELLOW (YELLOW); KETONES,URINE Negative (NEGATIVE); LEUKOCYTE ESTERASE ,URINE Negative (NEGATIVE); NITRITE, URINE Negative (NEGATIVE); PROTEIN,URINE Negative (NEGATIVE); UGLUCOSE >=1000 mg/dL (NEGATIVE); UROBILINOGEN,URINE 0.2 EU/dL (0.2)
[2023-10-24 20:26] LABS: CALCIUM, SERUM 9.5 mg/dL (8.5-10.1); CREATININE 0.7 mg/dL (0.6-1.3); POTASSIUM 3.5 mmol/L (3.5-5.1)
[2023-10-24 20:31] LABS: PREGNANCY TEST URINE QUAL NEGATIVE (NEGATIVE)
[2023-10-24 20:32] LABS: ALBUMIN 3.9 g/dL (3.4-5.0); BILIRUBIN,DIRECT 0.2 mg/dL (0.0-0.2); BILIRUBIN,TOTAL 1.3 mg/dL (0.2-1.0); TOTAL PROTEIN, SERUM 7.2 g/dL (6.4-8.2)
[2023-10-24] MEDS ORDERED: ONDA4TAB5 PO (23:03)
[2023-10-24] MEDS ORDERED: IBUP-51 PO (23:03)
[2023-10-24 23:20] VITALS: BP 128/78; O2SAT 100
== END 2023-10-24 23:20 | disposition home or self-care (01) ==
LOC: ER 18:54
DX: R10.32 Left lower quadrant pain (principal); R10.12 Left upper quadrant pain; R11.2 Nausea with vomiting, unspecified; E78.00 Pure hypercholesterolemia, unspecified; I10 Essential (primary) hypertension; E11.9 Type 2 diabetes mellitus without complications; K21.9 Gastro-esophageal reflux disease without esophagitis; Z79.84 Long term (current) use of oral hypoglycemic drugs; Z79.899 Other long term (current) drug therapy
CPT/HCPCS: 99285; 74176; 96374; 76856; 96361; 96375; 85025; 80048; 83690; 80076; 84703; 81003; 36415; J2270; J2405; J7030

== ENCOUNTER 2024-04-16 17:55 | Emergency (ER) | payer OTHER ==
[~2024-04-16] VITALS: Ht 152.4 cm; Wt 57.6 kg
[2024-04-16 19:47] LABS: BASOPHILS % (AUTO) 0.2 % (0.0-2.0); EOSINOPHILS # (AUTO) 0.1 K/uL (0.0-0.7); EOSINOPHILS % (AUTO) 1.2 % (0.0-6.0); HEMATOCRIT 38 % (33-45); HEMOGLOBIN 12.7 g/dL (11.5-14.8); LYMPHOCYTES # (AUTO) 1.4 K/uL (0.8-4.8); LYMPHOCYTES % (AUTO) 20.2 % (20.0-44.0); MEAN CORPUSCULAR HEMOGLOBIN 30 PG (26.0-33.0); MEAN CORPUSCULAR HGB CONC 33 g/dl (31.0-36.0); MEAN CORPUSCULAR VOLUME 91 fL (82-100); MONOCYTES # (AUTO) 0.5 K/uL (0.1-1.30); MONOCYTES % (AUTO) 7.4 % (2.0-12.0); PLATELET COUNT (AUTO) 279 K/uL (150-450); RED BLOOD CELL COUNT(AUTO) 4.22 MIL/uL (4.0-5.2)
[2024-04-16 19:54] LABS: CALCIUM, SERUM 10.3 mg/dL (8.5-10.1); CREATININE 0.6 mg/dL (0.6-1.3); POTASSIUM 3.5 mmol/L (3.5-5.1)
[2024-04-16 20:00] LABS: ALBUMIN 3.6 g/dL (3.4-5.0); BILIRUBIN,DIRECT 0.2 mg/dL (0.0-0.2); BILIRUBIN,TOTAL 1.5 mg/dL (0.2-1.0); TOTAL PROTEIN, SERUM 6.9 g/dL (6.4-8.2)
[2024-04-16] MEDS ORDERED: METOCLOPRAMIDE HCL 10 MG/2 ML VIAL ONE (20:09)
[2024-04-16] MEDS ORDERED: KETOROLAC TROMETHAMINE 15 MG/ML VIAL ONE (20:10)
[2024-04-16] MEDS ORDERED: SUMATRIPTAN SUCCINATE 6 MG/0.5 ML VIAL SQ ONE (20:11)
[2024-04-16] MEDS: METOCLOPRAMIDE HCL 10 MG/2 ML VIAL IV ONE (20:13)
[2024-04-16] MEDS ORDERED: IOHEXOL-300 100 ML VIAL IV ONE (20:15)
[2024-04-16] MEDS: KETOROLAC TROMETHAMINE 15 MG/ML VIAL IV ONE (20:15)
[2024-04-16] MEDS: SUMATRIPTAN SUCCINATE 6 MG/0.5 ML VIAL SQ ONE (20:16)
[2024-04-16] MEDS ORDERED: IV NS 0.9% 250 ML IV ONE (20:16)
[2024-04-16 20:24] LABS: PREGNANCY TEST URINE QUAL NEGATIVE (NEGATIVE)
[2024-04-16] MEDS ORDERED: METO-295 PO (21:42)
[2024-04-16] MEDS ORDERED: SUMA100T PO (21:42)
[2024-04-16] MEDS ORDERED: KETO10TA2 PO (21:42)
[2024-04-16 21:51] VITALS: BP 110/77; TEMP 98; O2SAT 99
== END 2024-04-16 22:07 | disposition home or self-care (01) ==
LOC: ER 17:59
DX: N83.202 Unspecified ovarian cyst, left side (principal); R10.12 Left upper quadrant pain; R51.9 Headache, unspecified; E78.5 Hyperlipidemia, unspecified; K21.9 Gastro-esophageal reflux disease without esophagitis; E11.9 Type 2 diabetes mellitus without complications; Z90.710 Acquired absence of both cervix and uterus; Z79.84 Long term (current) use of oral hypoglycemic drugs
CPT/HCPCS: 99285; 74176; 96374; 76856; 96375; 85025; 80048; 83690; 80076; 84703; 36415; 96372; J3030; J2765; J7050; Q9967; J1885